=== PATIENT | male | born 1975 | race African-American/Black ===

== ENCOUNTER 2023-09-04 10:48 | Inpatient (IN) | payer OTHER ==
[~2023-09-04] VITALS: Ht 175.3 cm; Wt 81.0 kg
[2023-09-04 12:28] VITALS: TEMP 98.3
[2023-09-04 13:53] LABS: EOSINOPHILS % (AUTO) 6.8 % (1.0-6.0); HEMATOCRIT 36.4 % (41-53); HEMOGLOBIN 11.9 g/dL (13.5-17.5); LYMPHOCYTES # (AUTO) 2.1 K/uL (1.0-4.8); LYMPHOCYTES % (AUTO) 26.5 % (22.0-44.0); MEAN CORPUSCULAR HEMOGLOBIN 29.4 pg (26.0-34.0); MEAN CORPUSCULAR HGB CONC 32.6 G/dL (31.0-37.0); MEAN CORPUSCULAR VOLUME 90 fL (80-100); MONOCYTES # (AUTO) 0.7 K/uL (0.1-1.0); MONOCYTES % (AUTO) 9.6 % (2.0-9.0); NEUTROPHILS # (AUTO) 4.4 K/uL (1.8-7.7); NEUTROPHILS % (AUTO) 56.1 % (40.0-70.0); PLATELET COUNT (AUTO) 253 K/uL (150-450); RED BLOOD CELL COUNT(AUTO) 4.04 MIL/uL (4.50-5.90); WHITE BLOOD COUNT (AUTO) 7.8 K/uL (4.5-11.0)
[2023-09-04 14:08] LABS: CALCIUM, TOTAL 10.9 mg/dL (8.8-10.5); CREATININE 13.3 mg/dL (0.60-1.30)
[2023-09-04 14:14] LABS: POTASSIUM 5.3 mmol/L (3.5-5.1)
[2023-09-04 14:30] LABS: TROPONIN I-HIGH SENSITIVITY 847 ng/L (<76)
[2023-09-04] MEDS: ASPIRIN 325 MG TABLET PO ONE (14:56)
[2023-09-04 15:20] LABS: TROPONIN I-HIGH SENSITIVITY 790 ng/L (<76)
[2023-09-04] MEDS ORDERED: ONDANSETRON HCL 4 MG/2 ML VIAL IVP PRN (15:30)
[2023-09-04] MEDS ORDERED: ZOLPIDEM TARTRATE 5 MG TABLET PO PRN (15:30)
[2023-09-04] MEDS ORDERED: BISACODYL 10 MG RECTAL RECTAL SUPPOSITORY PR PRN (15:30)
[2023-09-04] MEDS ORDERED: HYDROCODONE/ACETAMINOPHEN 5-325 MG TABLET PO PRN (15:30)
[2023-09-04] MEDS ORDERED: ACETAMINOPHEN 325 MG TABLET PO PRN (15:30)
[2023-09-04] MEDS ORDERED: MAGNESIUM HYDROXIDE SUSPENSION 30 ML UDCUP PO PRN (15:30)
[2023-09-04] MEDS ORDERED: HydrALAZINE HCL 20 MG/ML VIAL IVP PRN (15:30)
[2023-09-04] MEDS ORDERED: MORPHINE SULFATE 2 MG/ML SYRINGE IVP PRN (15:30)
[2023-09-04] MEDS: HEPARIN SODIUM,PORCINE 5,000 UNITS/ML VIAL SQ SCH (16:00)
[2023-09-04 16:49] VITALS: BP 183/98; PULSE 73; RESP 16
[2023-09-04] MEDS ORDERED: FOLIC ACID/VIT B COMPLEX AND C TABLET PO SCH (18:30)
[2023-09-04] MEDS ORDERED: CARVEDILOL 3.125 MG TABLET PO SCH (21:00)
[2023-09-04] MEDS ORDERED: ATORVASTATIN CALCIUM 20 MG TABLET PO SCH (21:00)
[2023-09-04] MEDS ORDERED: DOCUSATE SODIUM 100 MG CAPSULE PO SCH (21:00)
[2023-09-05] MEDS ORDERED: PANTOPRAZOLE SODIUM 40 MG DR TABLET PO SCH (09:00)
[2023-09-05] MEDS ORDERED: ASPIRIN 81 MG DR TABLET PO SCH (09:00)
== END 2023-09-05 00:33 | disposition left against medical advice (07) | DRG 280 ==
LOC: EMS 10:48 → 5S 17:35 → UNDOADMIN 18:26 → 5S 18:26
PROVIDERS: ADMIT Internal Medicine; ATTEND Internal Medicine
DX: I16.0 Hypertensive urgency (principal); N18.6 End stage renal disease; I21.A1 Myocardial infarction type 2; E87.5 Hyperkalemia; E87.70 Fluid overload, unspecified; D63.1 Anemia in chronic kidney disease; I12.0 Hypertensive chronic kidney disease with stage 5 chronic kidney disease or end stage renal disease; Z53.29 Procedure and treatment not carried out because of patient's decision for other reasons
CPT/HCPCS: 71045; 80048; 84484; 85025; 93005; 93306; 36415-L1; 36415-TC

== ENCOUNTER 2023-09-18 11:31 | Inpatient (IN) | payer OTHER ==
[~2023-09-18] VITALS: Ht 175.3 cm; Wt 81.0 kg
[2023-09-18] VITALS (10 sets, daily range): BP systolic 151–194; BP diastolic 85–119; PULSE 72–90; RESP 18–20; TEMP 97.7–98.5
[2023-09-18 12:15] LABS: BASOPHILS % (AUTO) 1.7 % (0.0-2.0); EOSINOPHILS % (AUTO) 7.3 % (1.0-6.0); HEMATOCRIT 36.9 % (41-53); LYMPHOCYTES # (AUTO) 1.6 K/uL (1.0-4.8); LYMPHOCYTES % (AUTO) 22.9 % (22.0-44.0); MEAN CORPUSCULAR HEMOGLOBIN 29.4 pg (26.0-34.0); MEAN CORPUSCULAR HGB CONC 32.5 G/dL (31.0-37.0); MEAN CORPUSCULAR VOLUME 91 fL (80-100); MONOCYTES # (AUTO) 0.7 K/uL (0.1-1.0); MONOCYTES % (AUTO) 9.3 % (2.0-9.0); NEUTROPHILS # (AUTO) 4.1 K/uL (1.8-7.7); NEUTROPHILS % (AUTO) 58.8 % (40.0-70.0); PLATELET COUNT (AUTO) 304 K/uL (150-450); RED BLOOD CELL COUNT(AUTO) 4.07 MIL/uL (4.50-5.90); RED CELL DISTRIBUTION WIDTH 14.6 % (11.5-14.5)
[2023-09-18 12:21] LABS: CALCIUM, TOTAL 10.8 mg/dL (8.8-10.5); CREATININE 13.45 mg/dL (0.60-1.30); POTASSIUM 5.4 mmol/L (3.5-5.1)
[2023-09-18 12:28] LABS: ALBUMIN 3.6 g/dL (3.4-5.0); BILIRUBIN,TOTAL 0.5 mg/dL (0.1-1.0); TOTAL PROTEIN, SERUM 7.7 g/dL (6.4-8.2)
[2023-09-18] MEDS ORDERED: SEVE800T7 PO (13:32)
[2023-09-18] MEDS ORDERED: XALA2.5OS OS (13:32)
[2023-09-18] MEDS ORDERED: PARI1CAP11 PO (13:32)
[2023-09-18] MEDS ORDERED: FERR-82 PO (13:32)
[2023-09-18] MEDS ORDERED: ASPI81TA87 PO (13:32)
[2023-09-18] MEDS ORDERED: [UNRECOGNIZED DRUG - CODE] IVP (13:32)
[2023-09-18] MEDS ORDERED: OMEP20 PO (13:32)
[2023-09-18] MEDS ORDERED: LISI-662 PO (13:32)
[2023-09-18] MEDS ORDERED: CLON-441 PO (13:32)
[2023-09-18] MEDS ORDERED: ATOR40TA28 PO (13:32)
[2023-09-18] MEDS ORDERED: ALBUTEROL SULFATE 2.5 MG/0.5 ML NEB SOLUTION NEB PRN (19:15)
[2023-09-18] MEDS ORDERED: IPRATROPIUM BROMIDE 0.5 MG/2.5 ML NEB SOLUTION NEB PRN (19:15)
[2023-09-18] MEDS ORDERED: ONDANSETRON HCL 4 MG/2 ML VIAL IVP PRN (19:15)
[2023-09-18] MEDS ORDERED: MAGNESIUM HYDROXIDE SUSPENSION 30 ML UDCUP PO PRN (19:15)
[2023-09-18] MEDS ORDERED: ZOLPIDEM TARTRATE 5 MG TABLET PO PRN (19:15)
[2023-09-18] MEDS ORDERED: BISACODYL 10 MG RECTAL RECTAL SUPPOSITORY PR PRN (19:15)
[2023-09-18] MEDS ORDERED: ACETAMINOPHEN 325 MG TABLET PO PRN (19:15)
[2023-09-18] MEDS ORDERED: LABETALOL HCL 5 MG/ML 20 ML VIAL IVP PRN (19:30)
[2023-09-18] MEDS: LATANOPROST 0.005% 2.5 ML OPHTHALMIC SOLUTION OS SCH (21:30)
[2023-09-18] MEDS: HEPARIN SODIUM,PORCINE 5,000 UNITS/ML VIAL SQ SCH (23:26)
[2023-09-19] MEDS: SEVELAMER CARBONATE 800 MG TABLET PO SCH (08:08)
[2023-09-19] MEDS: ASPIRIN 81 MG DR TABLET PO SCH (08:08)
[2023-09-19] MEDS: LISINOPRIL 20 MG TABLET PO SCH (08:09)
[2023-09-19] MEDS: ATORVASTATIN CALCIUM 40 MG TABLET PO SCH (08:09)
[2023-09-19] MEDS: CloNIDine HCL 0.1 MG TABLET PO SCH (08:09)
[2023-09-19] MEDS: FERROUS SULFATE 325 MG EC TABLET PO SCH (08:09)
[2023-09-19] MEDS: PANTOPRAZOLE SODIUM 40 MG DR TABLET PO SCH (08:09)
[2023-09-19] MEDS ORDERED: OMEPRAZOLE 20 MG CAPSULE PO SCH (09:00)
[2023-09-20] MEDS ORDERED: PARICALCITOL 1 MCG CAPSULE PO SCH (09:00)
== END 2023-09-19 19:30 | DRG 682 ==
LOC: EMS 11:31 → EDH 14:24 → EMS 14:37 → 6S 16:58
PROVIDERS: ADMIT Hospitalist; ATTEND Hospitalist
PROC: 5A1D70Z Performance of Urinary Filtration, Intermittent, Less than 6 Hours Per Day (ICD-10-PCS; principal; 2023-09-18)
DX: I12.0 Hypertensive chronic kidney disease with stage 5 chronic kidney disease or end stage renal disease (principal); N18.6 End stage renal disease; K21.9 Gastro-esophageal reflux disease without esophagitis; D63.1 Anemia in chronic kidney disease; H40.9 Unspecified glaucoma; Z99.2 Dependence on renal dialysis
CPT/HCPCS: 80053; 85025; 87081; 87340; 90935; 93005; 99285; J1644

== ENCOUNTER 2024-06-28 04:05 | Inpatient (IN) | payer OTHER ==
[~2024-06-28] VITALS: Ht 177.8 cm; Wt 85.5 kg
[~2024-06-28 04:05] MED LIST: ASPI81TA87 PO; ATOR40TA28 PO; CLON-441 PO; FERR-82 PO; LISI-662 PO; OMEP-148 PO; PARI1CAP11 PO; SEVE800T7 PO; XALA2.5OS OS; [UNRECOGNIZED DRUG - CODE] IVP
[2024-06-28 04:34] LABS: COVID AG,FIA SOURCE NASAL SWAB
[2024-06-28 04:38] LABS: BASOPHILS % (AUTO) 1.9 % (0.0-2.0); EOSINOPHILS % (AUTO) 5.1 % (1.0-6.0); LYMPHOCYTES # (AUTO) 0.8 K/uL (1.0-4.8); LYMPHOCYTES % (AUTO) 12.6 % (22.0-44.0); MEAN CORPUSCULAR HEMOGLOBIN 28.8 pg (26.0-34.0); MEAN CORPUSCULAR HGB CONC 32.4 G/dL (31.0-37.0); MEAN CORPUSCULAR VOLUME 89 fL (80-100); MONOCYTES % (AUTO) 16.9 % (2.0-9.0); NEUTROPHILS # (AUTO) 3.9 K/uL (1.8-7.7); NEUTROPHILS % (AUTO) 63.5 % (40.0-70.0); PLATELET COUNT (AUTO) 286 K/uL (150-450); RED BLOOD CELL COUNT(AUTO) 3.49 MIL/uL (4.50-5.90); RED CELL DISTRIBUTION WIDTH 15.3 % (11.5-14.5); WHITE BLOOD COUNT (AUTO) 6.2 K/uL (4.5-11.0)
[2024-06-28] MEDS ORDERED: AMLO-258 PO (04:40)
[2024-06-28] MEDS ORDERED: CARV-165 PO (04:40)
[2024-06-28 04:48] LABS: ANION GAP 5 mmol/L (8-16); CALCIUM, TOTAL 10.4 mg/dL (8.8-10.5); CARBON DIOXIDE 34 mmol/L (22-29); CHLORIDE 103 mmol/L (98-107); CREATININE 6.47 mg/dL (0.60-1.30); GLOMERULAR FILTR. RATE CALC 11 mL/min (>60); GLUCOSE,RANDOM 89 mg/dL (70-110); POTASSIUM 4.6 mmol/L (3.5-5.1); SODIUM SERUM 142 mmol/L (136-145); UREA NITROGEN, BLOOD 41 mg/dL (7-18)
[2024-06-28 04:51] LABS: ALBUMIN 2.4 g/dL (3.4-5.0); BILIRUBIN,DIRECT 0.1 mg/dL (0.00-0.20); BILIRUBIN,TOTAL 0.4 mg/dL (0.1-1.0); TOTAL PROTEIN, SERUM 6.1 g/dL (6.4-8.2)
[2024-06-28 04:54] LABS: INFLUENZA TYPE A NEGATIVE FOR TYPE A (NEGATIVE); INFLUENZA TYPE B NEGATIVE FOR TYPE B (NEGATIVE); SARS-COV2 (COVID) ANTIGEN,FIA Negative (Negative)
[2024-06-28 05:09] LABS: CREATINE KINASE, TOTAL ONLY 64 U/L (39-308)
[2024-06-28 05:10] LABS: TROPONIN I-HIGH SENSITIVITY 98 ng/L (<76)
[2024-06-28 05:48] LABS: B-TYPE NATRIURETIC PEPTIDE 3170 pg/mL (0-100)
[2024-06-28 07:26] LABS: TROPONIN I-HIGH SENSITIVITY 89 ng/L (<76)
[2024-06-28] MEDS ORDERED: ACETAMINOPHEN 325 MG TABLET PO PRN (10:15)
[2024-06-28 10:56] VITALS: BP 158/107; PULSE 93; RESP 18; TEMP 97.6; O2SAT 98
[2024-06-28] MEDS: AmLODIPine BESYLATE 10 MG TABLET PO SCH (11:04)
[2024-06-28] MEDS: ONDANSETRON HCL 4 MG/2 ML VIAL IVP PRN (12:51)
[2024-06-28] MEDS: HEPARIN SODIUM,PORCINE 5,000 UNITS/ML VIAL SQ SCH (16:28)
[2024-06-28 16:46] LABS: APPEARANCE,URINE CLEAR (CLEAR); BILIRUBIN,URINE NEGATIVE (NEGATIVE); COLOR,URINE COLORLESS (YELLOW); GLUCOSE, URINE (UA) 150-200 mg/dL (NEGATIVE); KETONES,URINE NEGATIVE (NEGATIVE); LEUKOCYTE ESTERASE ,URINE NEGATIVE (NEGATIVE); NITRATE,URINE NEGATIVE (NEGATIVE); OCCULT BLOOD,URINE NEGATIVE (NEGATIVE); PROTEIN,URINE 30-70 mg/dL (NEGATIVE); SPECIFIC GRAVITIY, URINE 1.006 (1.003-1.030); UROBILINOGEN,URINE <=1.0 mg/dL (<=1.0)
[2024-06-28 17:07] LABS: BACTERIA,URINE None Seen /HPF (None Seen); RBC,URINE None Seen /HPF (0-2); SQUAMOUS EPITHELIAL CELL,UR None Seen /LPF (None Seen); WBC,URINE 0-2 /HPF (0-5)
[2024-06-28] MEDS: FOLIC ACID/VIT B COMPLEX AND C TABLET PO SCH (18:09)
[2024-06-28 20:39] VITALS: BP 160/108; PULSE 94; RESP 20; TEMP 97.9; O2SAT 92
[2024-06-28] MEDS: DOCUSATE SODIUM 100 MG CAPSULE PO SCH (21:27)
[2024-06-28] MEDS: CloNIDine HCL 0.1 MG TABLET PO PRN (21:27)
[2024-06-29] VITALS (15 sets, daily range): BP systolic 147–181; BP diastolic 71–130; PULSE 66–101; RESP 18–19; TEMP 97.6–98.3; O2SAT 95–100
[2024-06-29] MEDS: HydrALAZINE HCL 20 MG/ML VIAL IVP PRN (00:21)
[2024-06-29 00:36] LABS: GLUCOMETER DEV NAME(LOC) 5N.1D; GLUCOSE,POINT OF CARE 86 MG/DL (70-110)
[2024-06-29] MEDS: ATORVASTATIN CALCIUM 40 MG TABLET PO SCH (08:34)
[2024-06-29] MEDS: FAMOTIDINE 20 MG TABLET PO SCH (08:35)
[2024-06-29] MEDS: ASPIRIN 81 MG CHEWABLE TABLET PO SCH (08:35)
[2024-06-30 04:57] VITALS: BP 158/103; PULSE 99; RESP 18; TEMP 97.5; O2SAT 97
[2024-06-30 07:55] VITALS: BP 180/105; PULSE 99; RESP 19; TEMP 98; O2SAT 98
[2024-06-30] MEDS: LISINOPRIL 20 MG TABLET PO SCH (10:25)
[2024-06-30 11:51] VITALS: BP 157/103; PULSE 96; RESP 18; TEMP 98; O2SAT 97
[2024-06-30 18:00] VITALS: BP 158/102; PULSE 95
[2024-06-30] MEDS: LATANOPROST 0.005% 2.5 ML OPHTHALMIC SOLUTION OS SCH (21:30)
[2024-07-01] MEDS: CARVEDILOL 6.25 MG TABLET PO SCH (08:31)
[2024-07-01 09:02] VITALS: BP 147/85; PULSE 104; RESP 19; TEMP 98; O2SAT 97
[2024-07-01 11:10] LABS: BASOPHILS % (AUTO) 0.7 % (0.0-2.0); EOSINOPHILS % (AUTO) 2.3 % (1.0-6.0); HEMATOCRIT 32.1 % (41-53); HEMOGLOBIN 10.2 g/dL (13.5-17.5); LYMPHOCYTES # (AUTO) 0.7 K/uL (1.0-4.8); LYMPHOCYTES % (AUTO) 11.8 % (22.0-44.0); MEAN CORPUSCULAR HEMOGLOBIN 28.2 pg (26.0-34.0); MEAN CORPUSCULAR HGB CONC 31.8 G/dL (31.0-37.0); MEAN CORPUSCULAR VOLUME 89 fL (80-100); MONOCYTES # (AUTO) 0.9 K/uL (0.1-1.0); MONOCYTES % (AUTO) 13.9 % (2.0-9.0); NEUTROPHILS # (AUTO) 4.5 K/uL (1.8-7.7); NEUTROPHILS % (AUTO) 71.3 % (40.0-70.0); PLATELET COUNT (AUTO) 324 K/uL (150-450); RED BLOOD CELL COUNT(AUTO) 3.62 MIL/uL (4.50-5.90); WHITE BLOOD COUNT (AUTO) 6.3 K/uL (4.5-11.0)
[2024-07-01 11:19] LABS: CALCIUM, TOTAL 10.2 mg/dL (8.8-10.5); CREATININE 7.88 mg/dL (0.60-1.30); POTASSIUM 4.6 mmol/L (3.5-5.1)
[2024-07-01 12:44] VITALS: BP 144/94; PULSE 92; RESP 18; TEMP 98.1; O2SAT 100
[2024-07-01] MEDS ORDERED: DOCU-385 PO (14:19)
[2024-07-01] MEDS ORDERED: FAMO20 PO (14:19)
[2024-07-01] MEDS ORDERED: FOLI0.8T54 PO (14:20)
[2024-07-01] MEDS ORDERED: ACET160L45 PO (14:23)
[2024-07-01] MEDS ORDERED: CLON-441 PO (14:25)
[2024-07-01 16:12] VITALS: BP 141/82; PULSE 84; RESP 19; TEMP 98; O2SAT 99
== END 2024-07-01 19:20 | DRG 280 ==
LOC: EMS 04:06 → EDH 05:26 → 5S 10:46
PROVIDERS: ADMIT Internal Medicine; ATTEND Internal Medicine
PROC: 5A1D70Z Performance of Urinary Filtration, Intermittent, Less than 6 Hours Per Day (ICD-10-PCS; principal; 2024-06-29)
DX: I16.0 Hypertensive urgency (principal); N18.6 End stage renal disease; I21.A1 Myocardial infarction type 2; I12.0 Hypertensive chronic kidney disease with stage 5 chronic kidney disease or end stage renal disease; D63.1 Anemia in chronic kidney disease; E78.5 Hyperlipidemia, unspecified; Z20.822 Contact with and (suspected) exposure to COVID-19; Z99.2 Dependence on renal dialysis; H54.8 Legal blindness, as defined in USA; Z91.199 Patient's noncompliance with other medical treatment and regimen due to unspecified reason
CPT/HCPCS: 71045; 80048; 80076; 81001; 81003; 82550; 82962; 83880; 84484; 85025; 87340; 87804; 90935; 93005; 99285; J0360; J1644; J2405; 36415-L1; 36415-TC